=== PATIENT | male | born 1955 | race Caucasian/White ===

== ENCOUNTER 2021-12-05 19:01 | Emergency (ER) | payer MEDICARE, SELFPAY ==
--- NOTE | 2021-12-05 19:09 | ED.SKABFB ---
HPI - Skin/Abscess/Foreign Bdy General Chief complaint: Extremity Injury, Lower Stated complaint: right knee would Time Seen by Provider: 12/05/21 19:09 Source: patient and RN notes reviewed History of Present Illness HPI narrative: Patient is 66-year-old male who presents the urgent care with complaints of right knee wound after falling in [employer] parking lot last night. Patient claims that at the time of the fall he was not under the influence of alcohol or drugs however patient is most definitely under the influence of alcohol at this time. Patient does admit to drinking alcohol today but states its been 6 hours . Patient states that he cleaned the wound with warm water but otherwise has not done anything [id number] for his pain or injury. No other acute complaints or injuries. No acute distress noted. Patient denies hitting his head during the fall. Patient aware of the plan of care. Some parts of this dictation were generated by voice recognition software and may contain typographical and/or grammatical inaccuracies. Related Data Home Medications Medication Instructions Recorded Confirmed No Home Medications 12/05/21 12/05/21 Allergies Allergy/AdvReac Type Severity Reaction Status Date / Time pain meds AdvReac Nausea and Uncoded 12/05/21 19:24 Vomiting Review of Systems Review of Systems: CONSTITUTIONAL: Denies fever, chills, or sweats. EYES: Denies visual changes, redness, or discharge. ENT: Denies rhinorrhea, congestion, sore throat, or otalgia. CARDIOVASCULAR: Denies chest pain, palpitations, or edema. RESPIRATORY: Denies cough or dyspnea. GASTROINTESTINAL: Denies abdominal pain, nausea, vomiting, or diarrhea. GENITOURINARY: Denies dysuria or hematuria. SKIN: Reports of abrasion to the right knee MUSCULOSKELETAL: Denies back pain, joint pain, or myalgia. NEUROLOGIC: Denies headache, numbness, or weakness. All other systems reviewed are negative, except as documented in HPI. PMFSH Comments At the time of my signature, I reviewed and agree with the nursing past medical, surgical, social, and family history. There is no relevant family history pertinent to the patient complaint. Exam Narrative: GENERAL: This is a well-nourished, well-developed patient, in no apparent distress. HEAD: normocephalic, atraumatic. EYES: PERRL. Sclera clear/white. Vision is grossly intact. EARS: External ears normal NOSE: External nose normal with no obvious nasal discharge, nares without redness, no rhinorrhea. THROAT: Mucous membranes moist NECK: Neck supple SKIN: 4 x 1.5 cm superficial skin abrasion to the anterior aspect of the right knee without surrounding edema or erythema. Warm, intact with no suspicious lesions or rash, good texture and turgor. NEURO: awake, alert, and oriented to person, place and time. There were no obvious focal neurologic abnormalities. EXTREMITIES: No edema, ecchymosis or erythema noted to the right knee. No tenderness to the right knee. Positive strong right pedal pulse with capillary refill less than 2 seconds. Range of motion of right lower extremity within normal limits with no exacerbated pain on ambulation or flexion Course Course Level of Care: Express Care Visit Vital Signs Vital signs: Vital Signs Temperature 98.8 F 12/05/21 19:25 Pulse Rate 97 12/05/21 19:25 Respiratory Rate 18 12/05/21 19:25 Blood Pressure 128/86 12/05/21 19:25 Pulse Oximetry 98 12/05/21 19:25 Oxygen Delivery Room Air 12/05/21 19:25 Temperature 98.8 F 12/05/21 19:25 Pulse Rate 97 12/05/21 19:25 Respiratory Rate 18 12/05/21 19:25 Blood Pressure 128/86 12/05/21 19:25 Pulse Oximetry 98 12/05/21 19:25 Oxygen Delivery Room Air 12/05/21 19:25 Reviewed MDM - Skin/Abscess/Foreign Bdy MDM Narrative Medical decision making narrative: Advised the patient to keep the wound clean with plain Dial soap and water. May use Neosporin and a bandage. Keep the wound
[2021-12-05 19:25] VITALS: BP 128/86; PULSE 97; RESP 18; TEMP 37.1; O2SAT 98
--- NOTE | 2021-12-05 19:37 | ED_ITS ---
HPI - Extremity Injury (Lower) General Chief Complaint: Extremity Injury, Lower Stated Complaint: right knee would Time Seen by Provider: 12/05/21 19:09 Source: patient and RN notes reviewed Related Data Home Medications Medication Instructions Recorded Confirmed No Home Medications 12/05/21 12/05/21 Allergies Allergy/AdvReac Type Severity Reaction Status Date / Time pain meds AdvReac Nausea and Uncoded 12/05/21 19:24 Vomiting Course Course Level of Care: Express Care Visit Vital Signs Vital signs: Vital Signs Temperature 98.8 F 12/05/21 19:25 Pulse Rate 97 12/05/21 19:25 Respiratory Rate 18 12/05/21 19:25 Blood Pressure 128/86 12/05/21 19:25 Pulse Oximetry 98 12/05/21 19:25 Oxygen Delivery Room Air 12/05/21 19:25 Temperature 98.8 F 12/05/21 19:25 Pulse Rate 97 12/05/21 19:25 Respiratory Rate 18 12/05/21 19:25 Blood Pressure 128/86 12/05/21 19:25 Pulse Oximetry 98 12/05/21 19:25 Oxygen Delivery Room Air 12/05/21 19:25 Reviewed Discharge Plan Discharge Clinical Impression: Skin abrasion Patient Disposition: Home, Self-Care Condition: Stable Instructions: Abrasion (ED) Additional Instructions: Advised the patient to keep the wound clean with plain Dial soap and water. May use Neosporin and a bandage. Keep the wound open to air when it not at risk of being soiled. It is important to get air to the wound to allow for appropriate healing. Use Tylenol as needed for pain. If you develop any increase in symptoms associated with severe swelling, fever, nausea, vomiting or redness to the area?go to the emergency room. Follow-up with your PCP within 2 to 5 days or for worsening symptoms or failure to improve. Prescriptions: No Action No Home Medications Follow-up/Referrals: PHYSICIAN,DIRECTOR OF VOCATIONAL GUIDANCE [Primary Care Provider] - Time of Disposition: 19:20
== END 2021-12-05 19:20 | disposition home or self-care (01) ==
PROVIDERS: Emergency Provider Nurse Practitioner Family
DX: S80.211A Abrasion, right knee, initial encounter (principal); W19.XXXA Unspecified fall, initial encounter
CPT/HCPCS: 99211; G0463